=== PATIENT | female | born 1960 | race Caucasian/White ===

== ENCOUNTER 2018-01-20 11:31 | Outpatient (CLI) | payer OTHER, SELFPAY ==
--- NOTE | 2018-01-20 13:12 | RAD ---
PA AND LATERAL VIEWS CHEST: HISTORY: Wheezing. FINDINGS: The heart size is normal. The left lung is clear. There is a right-sided moderate-sized pleural eff usion. No pneumothoraces identified. IMPRESSION: Right pleural effusion. POS: [facility]
== END 2018-01-20 11:32 | disposition home or self-care (01) ==
LOC: RAD-FRANK 11:31
PROVIDERS: ATTEND Nurse Practitioner Family
DX: R06.02 Shortness of breath (principal); R68.89 Other general symptoms and signs; R60.0 Localized edema; R06.2 Wheezing; J45.41 Moderate persistent asthma with (acute) exacerbation; J90 Pleural effusion, not elsewhere classified
CPT/HCPCS: 36415; 71046; 80053; 83880; 85025

== ENCOUNTER 2019-03-16 16:05 | Emergency (ER) | payer OTHER ==
[~2019-03-16 16:05] MED LIST: ISOVUE-370 76%-LOCM 1 ML ONE
[2019-03-16 16:55] LABS: #Basophils 0.1 thou/uL (0.0-0.2); #Eosinphils 0.2 thou/uL (0.0-0.7); #Lymphocytes 1.5 thou/uL (1.20-3.40); #Monocytes 0.5 thou/uL (0.11-0.59); #Neutrophils 4.6 thou/uL (1.40-6.50); %Basophils 1.1 % (0.0-1.0); %Eosinophils 3.2 % (0.0-10.0); %Lymphocytes 21.4 % (21.0-51.0); %Monocytes 7.8 % (0.0-10.0); %Neutrophils 66.6 % (42.0-75.0); Hemoglobin 12.5 g/dL (12.0-16.0); Mean Corpuscular HGB CONC 33.8 g/dL (32.0-36.0); Mean Corpuscular Hemoglobin 33.7 pg (27.0-31.0); Mean Corpuscular Volume 99.8 fL (78.0-98.0); Mean Platelet Volume 7.1 fL (7.4-10.4); Platelet Count 128 thou/uL (130-400); RBC Distribution Width 13.8 % (11.5-14.5); Red Blood Cell (RBC) Count 3.71 mill/uL (4.20-5.40); White Blood Cell (WBC) Count 6.9 thou/uL (4.8-10.8)
[2019-03-16 17:16] LABS: ALT (SGPT) 29 U/L (8-55); AST (SGOT) 64 U/L (5-34); Alkaline Phosphatase 121 U/L (40-150); Anion Gap 10 mmol/L (10-20); BUN (Urea Nitrogen) 8 mg/dL (9.8-20.1); Bilirubin, Total 1.6 mg/dL (0.2-1.2); CK (CPK) 27 U/L (29-168); Calc. Creatinine Clearance 0 mL/min (70-130); Carbon Dioxide 30 mmol/L (22-29); Chloride 100 mmol/L (98-107); Estimated GFR-MDRD 89; Globulin 4.3 g/dL (2.4-3.5); Glucose 102 mg/dL (70-105); Lipase 45 U/L (8-78); Protein, Total 7.3 g/dL (6.0-8.3); Sodium 136 mmol/L (136-145)
--- NOTE | 2019-03-16 17:17 | CT ---
CTA Angio Chest W WO Con HISTORY: Patient being treated for right lower lobe pneumonia. Worsening dyspnea. COMPARISON: Plain film examination done earlier today. FINDINGS: A very large right-sided pleural effusion is again identified with marked volume loss landa es of the right lower lobe. There are no signs of a confluent infiltrate changes appear more related to the volume loss in the right lower and middle lobes related to compressive atelectasis rel ated to the large effusion. The left lung is essentially clear. The thoracic aorta is normal in caliber. There is no CT evidence for pulmonary embolus. Liver parenchyma shows a nodular cirrhotic contour splenomegaly and varices are identified. Some mild ascites is noted. Hypodensity within the left lobe of the liver statistically most likely a cyst. IMPRESSION: 1. No CT evidence for pulmonary embolus. 2. Large right pleural effusion with atelectatic changes in the right lung base. 3. Cirrhotic appearing liver with mild ascites and splenomegaly.
--- NOTE | 2019-03-16 18:19 | RAD ---
EXAM: Chest one view: HISTORY: Postthoracentesis COMPARISON: 03/16/2019 FINDINGS: The previously noted large right pleural effusion has considerably decreased in size. There is some u nderlying right lung atelectasis. No evidence for pneumothorax. Heart size: Within normal limits. The lungs: Underlying parenchymal changes in the right lower lobe. IMPRESSION: Decrease in the right-sided pleural effusion with some underlying right lower lobe atelectasis. No pn eumothorax.
[2019-03-16 18:36] LABS: BF Color Yellow; Body Fluid Source Thoracentesis Fluid; Clarity Hazy (Clear); RBC Count-Automated 14000 /cumm; Tube # EDTA; WBC Background Count 0.01; WBC/NonHematic-Auto 244 /cumm
[2019-03-16 18:40] LABS: Fluid, Triglycerides 22 mg/dL (Not Available); Pleural Fluid, Amylase Less than 30 U/L (Not Available); Pleural Fluid, Glucose 130 mg/dL; Pleural Fluid, LDH 148 U/L (Not Available)
[2019-03-16 19:21] LABS: BF Segmented Neutrophils 10 %; Cell Count Non Hematic 59 %; Lymphocytes 31 %
--- NOTE | 2019-03-17 00:42 | OP ---
DATE OF PROCEDURE: 03/16/2019 PROCEDURE: Right thoracentesis. PREOPERATIVE DIAGNOSIS: Massive right pleural effusion. POSTOPERATIVE DIAGNOSIS: Massive right pleural effusion. ANESTHESIA: 1% lidocaine without epinephrine. DESCRIPTION OF PROCEDURE: Procedure was done in the emergency room with the patient in the sitting position. She gave informed consent prior to the procedure and understood the risks including bleeding, infection, external lung puncture, and agreed to proceed. The patient was placed in the sitting position. The right posterior hemothorax was labeled at the 5th and 6th interspace midscapular line. She was cleansed with chlorhexidine and draped sterilely. 1% lidocaine was used to anesthetize the entry site. A [id number]-[id number]-Mgaokqhu catheter was placed sterilely into the pleural space. A 1500 mL of melanie/red pleural fluid was removed and sent for appropriate studies. She tolerated the procedure well with minimal coughing. Postoperative x-ray is pending. Job ID: [id number]
--- NOTE | 2019-03-17 00:44 | CON ---
DATE OF CONSULTATION: 03/16/2019 REASON FOR CONSULTATION: Pleural effusion. HISTORY OF PRESENT ILLNESS: Ms. Du is a 58-year-old female who presented to the emergency room with increasing shortness of breath that occurred since March 02. She says she was diagnosed with pneumonia on March 02 and prescribed antibiotics and steroids. Last night, she says she became more short of breath. She said she had some subjective fever by a temporal thermal probe. PAST MEDICAL HISTORY: Hypertension and peripheral edema. PAST SURGICAL HISTORY: None reported. ALLERGIES: NONE. MEDICATIONS: Prior to admission, not taking any. SOCIAL HISTORY: Nonsmoker, does not consume alcohol except for one drink per night. 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 FAMILY MEDICAL HISTORY: Unremarkable. REVIEW OF SYSTEMS: A 12-point review of systems is otherwise negative. PHYSICAL EXAMINATION: VITAL SIGNS: Pulse 100, blood pressure 140/70, O2 saturation 97% on room air. HEENT: Unremarkable. NECK: Without adenopathy, JVD, or bruits. LUNGS: She has diminished breath sounds at the right base. No dullness to percussion, right base. Left side is clear. CARDIAC: S1 and S2. Regular. ABDOMEN: Soft, nontender, and nondistended. EXTREMITIES: No clubbing, cyanosis, or edema. LABORATORY DATA: Sodium 136, potassium 4, chloride 100, CO2 of 30, BUN 8, creatinine 0.7 glucose 102, albumin is 3.0, AST 64, ALT 29. White count 6.9, hematocrit 37, platelet count 128. Chest x-ray showed a massive right pleural effusion, which was confirmed by CT scan. However, reviewing previous x-rays dating back to March 02, 2019 and January 20, 2018, she also had a pleural effusion on the right at that time. It has been more so prominent the last month than it was last year. ASSESSMENT: Right pleural effusion - source not clear. PLAN: Diagnostic and therapeutic right thoracentesis. Further disposition to follow. Job ID: [id number]
== END 2019-03-16 18:37 | disposition home or self-care (01) ==
LOC: ERS 16:05
DX: J95.89 Other postprocedural complications and disorders of respiratory system, not elsewhere classified (principal); R06.00 Dyspnea, unspecified; I10 Essential (primary) hypertension; Z79.899 Other long term (current) drug therapy
CPT/HCPCS: 71045; 71275; 80053; 82150; 82550; 82945; 83615; 83690; 83880; 83986; 84157; 84478; 84484; 85025; 85060; 87070; 87116; 87205; 87206; 88112; 88305; 89051; 93005; 96360; Q9966

== ENCOUNTER 2019-06-03 14:22 | Outpatient (CLI) | payer OTHER ==
--- NOTE | 2019-06-03 15:23 | RAD ---
3 VIEWS RIGHT HAND: Date: 06/03/19 HISTORY: Pain in right fifth digit. FINDINGS: There is a comminuted fracture with minimal separation of fracture fragments involving the proximal p halanx of the right small finger. There is no significant angulation or displacement of fracture frag ments. There is also an avulsion fracture seen involving the dorsal aspect of the base of the middle phalanx right small finger. 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 There is slight irr egularity to the base of the fifth metacarpal small finger, but this is likely related to overlying s tructures and is not thought to be related to fracture. IMPRESSION: 1. Comminuted and minimally , but nondisplaced fracture involving the proximal phalanx righ t small finger. 2. Avulsion fracture involving the dorsal aspect base of the middle phalanx right small finger. POS: [facility]
== END 2019-06-03 14:23 | disposition home or self-care (01) ==
LOC: RAD-FRANK 14:22
PROVIDERS: ATTEND Nurse Practitioner Family
DX: M79.641 Pain in right hand (principal); M25.532 Pain in left wrist; S62.646A Nondisplaced fracture of proximal phalanx of right little finger, initial encounter for closed fracture; S62.626A Displaced fracture of middle phalanx of right little finger, initial encounter for closed fracture; W19.XXXA Unspecified fall, initial encounter

== ENCOUNTER 2025-01-04 14:50 | Inpatient (IN) | payer OTHER, SELFPAY ==
[~2025-01-04 14:50] MED LIST changes: -ISOVUE-370 76%-LOCM 1 ML ONE; +Iopamidol-370 76% 500 ML MDV (1 ML CHARGE) ONE
[2025-01-04 18:34] LABS: ALT (SGPT) 40 U/L (Less than 34); AST (SGOT) 125 U/L (11-34); Alkaline Phosphatase 129 U/L (40-110); Anion Gap 13 mmol/L (10-20); BUN (Urea Nitrogen) 42 mg/dL (9.8-20.1); Bilirubin, Total 8.5 mg/dL (0.3-1.2); CK (CPK) 39 U/L (29-168); Calc. Creatinine Clearance 0 mL/min (70-130); Calcium 8.6 mg/dL (7.8-10.44); Carbon Dioxide 26 mmol/L (23-31); Chloride 94 mmol/L (98-107); Estimated GFR 31; Globulin 4.1 g/dL (2.4-3.5); Glucose 110 mg/dL (80-115); INR-International Normal Ratio 1.8; PTT 40.3 sec (22.9-36.1); Potassium 3.8 mmol/L (3.5-5.1); Protein, Total 6.1 g/dL (5.8-8.1); Prothrombin Time 20.8 sec (12.0-14.7); Sodium 129 mmol/L (136-145)
[2025-01-04 18:38] LABS: Troponin I 0.027 ng/mL (< 0.028)
[2025-01-04 18:41] LABS: Anisocytosis MODERATE=16-30 cells HPF (0-5); Burr Cells SLIGHT = 2-5 cells HPF (0-1); Macrocytosis MODERATE=16-30 cells HPF (0-5); Platelet Adequacy Comment Platelets Decreased; Poikilocytosis SLIGHT = 6-15 cells HPF (0-5); Polychromasia MODERATE = 3-4 cells HPF (0-2)
[2025-01-04 18:42] LABS: %Basophils 0.9 % (0.0-1.0); %Eosinophils 6.2 % (0.0-10.0); %Lymphocytes 14.8 % (21.0-51.0); %Monocytes 11.2 % (0.0-10.0); %Neutrophils 66.5 % (42.0-75.0); Hematocrit 21.6 % (36.0-47.0); Mean Corpuscular Hemoglobin 42.3 pg (27.0-31.0); Mean Corpuscular Volume 114.3 fL (78.0-98.0); Mean Platelet Volume 9.6 fL (7.4-10.4); Platelet Count 125 10x3/uL (130-400); RBC Distribution Width 20.5 % (11.5-14.5); Red Blood Cell (RBC) Count 1.89 mill/uL (4.20-5.40)
[2025-01-04 20:57] LABS: Bilirubin Negative (Negative); Blood, Urine Negative (Negative); CAUTI Indications for Culture Alt mental st,lethar; Glucose, Urine (Dipstick) Normal (Negative); Ketone, Urine Negative (Negative); Leukocyte 500 Leu/uL (Negative); Nitrite Negative (Negative); Protein, Urine (Dipstick) Negative (Neg-Trace); RBC/HPF 21-50 HPF (0-3); Specific Gravity, Urine 1.029 (1.002-1.036); Squamous Epithelial 0-3 HPF (0-3); Urobilinogen 3 mg/dL (Less than 2); Yeast-Budding 1+ HPF (None Seen); pH, Urine 5.5 (5.0-9.0)
[2025-01-04] MEDS ORDERED: Ondansetron ODT 4 MG TAB PO PRN (20:57)
[2025-01-04] MEDS ORDERED: Ondansetron PF 4 MG/2 ML Vial IVP PRN (20:57)
[2025-01-04] MEDS ORDERED: Acetaminophen 650 MG Suppository PR PRN (20:57)
[2025-01-04 20:59] LABS: Bacteria/HPF 1+ HPF (None Seen); Clarity Hazy (Clear)
[2025-01-04 21:00] LABS: Urine Culture Reflex Yes Yes
[2025-01-04] MEDS ORDERED: Ondansetron PF 4 MG/2 ML Vial ONE (21:45)
[2025-01-05] MEDS: Albumin 25% 25 GM (100 mL) BOT IVPB SCH ×2 (00:07→01:39)
[2025-01-05 00:08] VITALS: BMI 38.0
[2025-01-05] MEDS: Rifaximin 550 MG TAB PO SCH (01:39)
[2025-01-05] MEDS: cefTRIAXone\\ROCEPHIN 1 GM in Sodium Chloride 0.9% 100 ML IVPB SCH (02:32)
[2025-01-05 04:35] LABS: #Basophils 0.03 10x3/uL (0.0-0.2); %Basophils 0.4 % (0.0-1.0); %Eosinophils 10.1 % (0.0-10.0); %Lymphocytes 17.4 % (21.0-51.0); %Neutrophils 61.8 % (42.0-75.0); Hematocrit 18.8 % (36.0-47.0); Hemoglobin 6.8 g/dL (12.0-16.0); Mean Corpuscular HGB CONC 36.2 g/dL (32.0-36.0); Mean Corpuscular Hemoglobin 41.2 pg (27.0-31.0); Mean Corpuscular Volume 113.9 fL (78.0-98.0); Platelet Count 87 10x3/uL (130-400); RBC Distribution Width 20.4 % (11.5-14.5); Red Blood Cell (RBC) Count 1.65 mill/uL (4.20-5.40)
[2025-01-05 04:49] LABS: ALT (SGPT) 29 U/L (Less than 34); AST (SGOT) 98 U/L (11-34); Albumin 2.2 g/dL (3.1-4.5); Alkaline Phosphatase 99 U/L (40-110); Anion Gap 14 mmol/L (10-20); BUN (Urea Nitrogen) 37 mg/dL (9.8-20.1); Bilirubin, Total 8.7 mg/dL (0.3-1.2); Calc. Creatinine Clearance 51 mL/min (70-130); Calcium 8.4 mg/dL (7.8-10.44); Carbon Dioxide 24 mmol/L (23-31); Chloride 96 mmol/L (98-107); Estimated GFR 33; Globulin 3.5 g/dL (2.4-3.5); Glucose 101 mg/dL (80-115); Potassium 3.8 mmol/L (3.5-5.1); Protein, Total 5.7 g/dL (5.8-8.1); Sodium 130 mmol/L (136-145)
[2025-01-05] MEDS ORDERED: Cyanocobalamin 1000 MCG/ML VIAL IM SCH (09:00)
[2025-01-05] MEDS ORDERED: Folic Acid 5 MG/ML MDV SC SCH (09:00)
[2025-01-05] MEDS: Furosemide 40 MG TAB PO SCH (10:17)
[2025-01-05] MEDS: Spironolactone 100 MG TAB PO SCH (10:17)
[2025-01-05] MEDS: Pantoprazole 40 MG VIAL IVP SCH (10:17)
[2025-01-05] MEDS: Nadolol 40 MG TAB PO SCH (10:18)
[2025-01-05] MEDS: Folic Acid 0.4 MG in Syringe 0 ML SC SCH (10:18)
[2025-01-05 16:25] LABS: Hematocrit 23.1 % (36.0-47.0); Hemoglobin 7.9 g/dL (12.0-16.0)
[2025-01-05] MEDS: Octreotide Acetate 50 MCG/ML AMP SLOW IVP SCH (19:02)
[2025-01-05] MEDS: Octreotide Acetate 1,250 MCG in Sodium Chloride 0.9% 250 ML 250 ML IVPB SCH (19:02)
[2025-01-05] MEDS: Phytonadione 5 MG TAB PO SCH (19:02)
[2025-01-05] MEDS: Midodrine HCl 5 MG TAB PO SCH (21:54)
[2025-01-06 03:42] LABS: ALT (SGPT) 27 U/L (Less than 34); AST (SGOT) 81 U/L (11-34); Albumin 2.9 g/dL (3.1-4.5); Alkaline Phosphatase 85 U/L (40-110); Anion Gap 16 mmol/L (10-20); BUN (Urea Nitrogen) 39 mg/dL (9.8-20.1); Bilirubin, Total 8.8 mg/dL (0.3-1.2); Calc. Creatinine Clearance 55 mL/min (70-130); Calcium 8.8 mg/dL (7.8-10.44); Carbon Dioxide 25 mmol/L (23-31); Chloride 93 mmol/L (98-107); Estimated GFR 35; Globulin 3.1 g/dL (2.4-3.5); Glucose 184 mg/dL (80-115); Potassium 3.3 mmol/L (3.5-5.1); Sodium 131 mmol/L (136-145)
[2025-01-06 03:52] LABS: #Basophils 0.05 10x3/uL (0.0-0.2); %Eosinophils 9.5 % (0.0-10.0); %Lymphocytes 18.9 % (21.0-51.0); %Monocytes 10.9 % (0.0-10.0); %Neutrophils 59.5 % (42.0-75.0); Hematocrit 25.2 % (36.0-47.0); Hemoglobin 8.2 g/dL (12.0-16.0); Mean Corpuscular HGB CONC 32.5 g/dL (32.0-36.0); Mean Corpuscular Hemoglobin 35.3 pg (27.0-31.0); Mean Corpuscular Volume 108.6 fL (78.0-98.0); Mean Platelet Volume 9.7 fL (7.4-10.4); Platelet Count 69 10x3/uL (130-400); RBC Distribution Width 24.2 % (11.5-14.5); Red Blood Cell (RBC) Count 2.32 mill/uL (4.20-5.40)
[2025-01-06] MEDS ORDERED: PROPOFOL 20 ML ONE (07:13)
[2025-01-06] MEDS ORDERED: Lidocaine 2% PF 5 ML VIAL ONE ×2 (07:13→09:19)
[2025-01-06] MEDS ORDERED: Ondansetron PF 4 MG/2 ML Vial ONE (09:09)
[2025-01-06] MEDS ORDERED: PHENYLEPHRINE-NS 100 MCG/ML 10 ML SYRINGE ONE (09:26)
[2025-01-06] MEDS: Acetaminophen 325 MG TAB PO PRN (11:39)
[2025-01-06] MEDS: Lactulose 20 GM (30 mL) UDCUP PO SCH (14:18)
[2025-01-06 19:12] LABS: RBC Count-Automated (BF) 0 /cu.mm; WBC/Nucleated-Auto (BF) 71 /cu.mm
[2025-01-06 19:20] LABS: BF Color Yellow; Body Fluid Source Ascites Body Fluid; Clarity Clear (Clear); Tube # EDTA
[2025-01-06] MEDS: cefTRIAXone\\ROCEPHIN 2 GM in Sodium Chloride 0.9% 100 ML IVPB SCH (21:38)
[2025-01-06 22:00] LABS: BF Segmented Neutrophils 1 %; Cell Count Non Hematic 82 %; Eosinophils 0 %; Lymphocytes 17 %
[2025-01-07 06:41] LABS: #Basophils Less than 0.03 10x3/uL (0.0-0.2); %Basophils 0.7 % (0.0-1.0); %Lymphocytes 25.8 % (21.0-51.0); %Monocytes 16.6 % (0.0-10.0); %Neutrophils 49.6 % (42.0-75.0); Hematocrit 22.6 % (36.0-47.0); Mean Corpuscular HGB CONC 35.4 g/dL (32.0-36.0); Mean Corpuscular Volume 110.2 fL (78.0-98.0); Mean Platelet Volume 10.3 fL (7.4-10.4); Platelet Count 60 10x3/uL (130-400); RBC Distribution Width 23.4 % (11.5-14.5); Red Blood Cell (RBC) Count 2.05 mill/uL (4.20-5.40)
[2025-01-07 06:56] LABS: ALT (SGPT) 27 U/L (Less than 34); AST (SGOT) 90 U/L (11-34); Albumin 2.3 g/dL (3.1-4.5); Alkaline Phosphatase 91 U/L (40-110); Anion Gap 14 mmol/L (10-20); BUN (Urea Nitrogen) 35 mg/dL (9.8-20.1); Bilirubin, Total 5.9 mg/dL (0.3-1.2); Calc. Creatinine Clearance 50 mL/min (70-130); Calcium 8.4 mg/dL (7.8-10.44); Carbon Dioxide 26 mmol/L (23-31); Chloride 98 mmol/L (98-107); Estimated GFR 32; Glucose 115 mg/dL (80-115); Potassium 3.1 mmol/L (3.5-5.1); Protein, Total 5.3 g/dL (5.8-8.1); Sodium 135 mmol/L (136-145)
[2025-01-07 07:30] LABS: Anisocytosis MODERATE=16-30 cells HPF (0-5); Hypochromia SLIGHT = 6-15 cells HPF (0-5); Macrocytosis MODERATE=16-30 cells HPF (0-5); Platelet Adequacy Comment Platelets Decreased; Polychromasia SLIGHT = 2-3 cells HPF (0-2)
[2025-01-07] MEDS: Lactulose 20 GM (30 mL) UDCUP PO SCH (08:45)
[2025-01-07] MEDS: Sodium Chloride 0.9% 1,000 ML IV SCH (09:15)
[2025-01-07] MEDS: Pantoprazole 40 MG DR.TAB PO SCH (10:31)
[2025-01-07] MEDS: Potassium Chloride 20 MEQ TAB PO SCH (10:31)
[2025-01-07] MEDS: Magnesium Oxide 400 MG TAB PO SCH (10:31)
[2025-01-07] MEDS: Albumin 25% 25 GM (100 mL) BOT IVPB SCH (11:46)
[2025-01-08 05:15] LABS: #Basophils Less than 0.03 10x3/uL (0.0-0.2); %Basophils 0.8 % (0.0-1.0); %Lymphocytes 28.7 % (21.0-51.0); %Neutrophils 45.1 % (42.0-75.0); Hematocrit 22.2 % (36.0-47.0); Hemoglobin 7.5 g/dL (12.0-16.0); Mean Corpuscular HGB CONC 33.8 g/dL (32.0-36.0); Mean Corpuscular Hemoglobin 37.7 pg (27.0-31.0); Mean Corpuscular Volume 111.6 fL (78.0-98.0); Mean Platelet Volume 10.3 fL (7.4-10.4); Platelet Count 48 10x3/uL (130-400); RBC Distribution Width 22.8 % (11.5-14.5); Red Blood Cell (RBC) Count 1.99 mill/uL (4.20-5.40)
[2025-01-08 05:55] LABS: ALT (SGPT) 21 U/L (Less than 34); AST (SGOT) 76 U/L (11-34); Alkaline Phosphatase 73 U/L (40-110); Anion Gap 13 mmol/L (10-20); BUN (Urea Nitrogen) 30 mg/dL (9.8-20.1); Bilirubin, Total 4.7 mg/dL (0.3-1.2); Calc. Creatinine Clearance 59 mL/min (70-130); Calcium 8.4 mg/dL (7.8-10.44); Carbon Dioxide 24 mmol/L (23-31); Chloride 107 mmol/L (98-107); Estimated GFR 39; Globulin 2.7 g/dL (2.4-3.5); Glucose 120 mg/dL (80-115); Potassium 4.3 mmol/L (3.5-5.1); Protein, Total 5.7 g/dL (5.8-8.1); Sodium 140 mmol/L (136-145)
[2025-01-09 05:15] LABS: #Basophils 0.03 10x3/uL (0.0-0.2); %Basophils 0.8 % (0.0-1.0); %Eosinophils 6.2 % (0.0-10.0); %Monocytes 13.7 % (0.0-10.0); Hematocrit 25.3 % (36.0-47.0); Hemoglobin 8.6 g/dL (12.0-16.0); Mean Corpuscular Hemoglobin 38.6 pg (27.0-31.0); Mean Corpuscular Volume 113.5 fL (78.0-98.0); Mean Platelet Volume 9.7 fL (7.4-10.4); Platelet Count 54 10x3/uL (130-400); RBC Distribution Width 22.1 % (11.5-14.5); Red Blood Cell (RBC) Count 2.23 mill/uL (4.20-5.40)
[2025-01-09 05:48] LABS: ALT (SGPT) 22 U/L (Less than 34); AST (SGOT) 74 U/L (11-34); Albumin 2.9 g/dL (3.1-4.5); Alkaline Phosphatase 68 U/L (40-110); Anion Gap 15 mmol/L (10-20); BUN (Urea Nitrogen) 22 mg/dL (9.8-20.1); Bilirubin, Total 5.7 mg/dL (0.3-1.2); Calc. Creatinine Clearance 75 mL/min (70-130); Calcium 8.6 mg/dL (7.8-10.44); Carbon Dioxide 21 mmol/L (23-31); Chloride 108 mmol/L (98-107); Estimated GFR 52; Globulin 2.9 g/dL (2.4-3.5); Glucose 101 mg/dL (80-115); Potassium 4.2 mmol/L (3.5-5.1); Protein, Total 5.8 g/dL (5.8-8.1); Sodium 140 mmol/L (136-145)
[2025-01-09 05:53] LABS: Anisocytosis SLIGHT = 6-15 cells HPF (0-5); Hypochromia SLIGHT = 6-15 cells HPF (0-5); Macrocytosis SLIGHT = 6-15 cells HPF (0-5); Platelet Adequacy Comment Platelets Decreased; Polychromasia SLIGHT = 2-3 cells HPF (0-2)
[2025-01-10 05:51] LABS: ALT (SGPT) 28 U/L (Less than 34); AST (SGOT) 104 U/L (11-34); Alkaline Phosphatase 63 U/L (40-110); Anion Gap 13 mmol/L (10-20); BUN (Urea Nitrogen) 20 mg/dL (9.8-20.1); Bilirubin, Total 6.7 mg/dL (0.3-1.2); Calc. Creatinine Clearance 85 mL/min (70-130); Calcium 8.6 mg/dL (7.8-10.44); Carbon Dioxide 24 mmol/L (23-31); Chloride 103 mmol/L (98-107); Estimated GFR 60; Globulin 3.1 g/dL (2.4-3.5); Glucose 128 mg/dL (80-115); Potassium 3.9 mmol/L (3.5-5.1); Protein, Total 6.1 g/dL (5.8-8.1); Sodium 136 mmol/L (136-145)
[2025-01-10 05:57] LABS: Hematocrit 25.6 % (36.0-47.0); Hemoglobin 9.1 g/dL (12.0-16.0); Mean Corpuscular HGB CONC 35.5 g/dL (32.0-36.0); Mean Corpuscular Hemoglobin 39.9 pg (27.0-31.0); Mean Corpuscular Volume 112.3 fL (78.0-98.0); Mean Platelet Volume 10.5 fL (7.4-10.4); Platelet Count 61 10x3/uL (130-400); RBC Distribution Width 21.3 % (11.5-14.5); Red Blood Cell (RBC) Count 2.28 mill/uL (4.20-5.40)
[2025-01-10 06:50] LABS: Anisocytosis MODERATE=16-30 cells HPF (0-5); Band 1 % (5-11); Eosinophils 2 % (0-10); Large Platelets 0.9 % (0-5); Lymphocytes 8 % (21-51); Macrocytosis SLIGHT = 6-15 cells HPF (0-5); Monocytes 5 % (0-10); Neutrophil 82 % (42-75); Platelet Adequacy Comment Platelets Decreased; Polychromasia SLIGHT = 2-3 cells HPF (0-2); Smudge Cells 36.8 %
[2025-01-11 06:18] LABS: Hematocrit 23.8 % (36.0-47.0); Mean Corpuscular HGB CONC 33.6 g/dL (32.0-36.0); Mean Corpuscular Hemoglobin 37.2 pg (27.0-31.0); Mean Corpuscular Volume 110.7 fL (78.0-98.0); Mean Platelet Volume 11.4 fL (7.4-10.4); Platelet Count 40 10x3/uL (130-400); RBC Distribution Width 20.7 % (11.5-14.5); Red Blood Cell (RBC) Count 2.15 mill/uL (4.20-5.40)
[2025-01-11 06:39] LABS: ALT (SGPT) 28 U/L (Less than 34); AST (SGOT) 118 U/L (11-34); Albumin 2.7 g/dL (3.1-4.5); Alkaline Phosphatase 56 U/L (40-110); Anion Gap 13 mmol/L (10-20); BUN (Urea Nitrogen) 21 mg/dL (9.8-20.1); Bilirubin, Total 5.4 mg/dL (0.3-1.2); Calc. Creatinine Clearance 75 mL/min (70-130); Calcium 8.6 mg/dL (7.8-10.44); Carbon Dioxide 24 mmol/L (23-31); Chloride 105 mmol/L (98-107); Estimated GFR 52; Glucose 125 mg/dL (80-115); Potassium 4.3 mmol/L (3.5-5.1); Protein, Total 5.7 g/dL (5.8-8.1); Sodium 138 mmol/L (136-145)
[2025-01-11 07:01] LABS: Anisocytosis SLIGHT = 6-15 cells HPF (0-5); Band 4 % (5-11); Large Platelets 4.9 % (0-5); Lymphocytes 18 % (21-51); Macrocytosis SLIGHT = 6-15 cells HPF (0-5); Monocytes 15 % (0-10); Neutrophil 64 % (42-75); Platelet Adequacy Comment Platelets Decreased; Polychromasia SLIGHT = 2-3 cells HPF (0-2); Smudge Cells 64.7 %
[2025-01-11 19:57] VITALS: BMI 37.7
[2025-01-12 05:20] LABS: #Basophils Less than 0.03 10x3/uL (0.0-0.2); %Basophils 0.5 % (0.0-1.0); %Lymphocytes 39.2 % (21.0-51.0); %Monocytes 15.6 % (0.0-10.0); %Neutrophils 39.7 % (42.0-75.0); Hematocrit 24.5 % (36.0-47.0); Mean Corpuscular HGB CONC 32.7 g/dL (32.0-36.0); Mean Corpuscular Hemoglobin 35.9 pg (27.0-31.0); Mean Corpuscular Volume 109.9 fL (78.0-98.0); Mean Platelet Volume 10.6 fL (7.4-10.4); Platelet Count 42 10x3/uL (130-400); RBC Distribution Width 20.2 % (11.5-14.5); Red Blood Cell (RBC) Count 2.23 mill/uL (4.20-5.40)
[2025-01-12 05:23] LABS: ALT (SGPT) 27 U/L (Less than 34); AST (SGOT) 114 U/L (11-34); Albumin 2.5 g/dL (3.1-4.5); Alkaline Phosphatase 60 U/L (40-110); Anion Gap 12 mmol/L (10-20); BUN (Urea Nitrogen) 19 mg/dL (9.8-20.1); Bilirubin, Total 4.5 mg/dL (0.3-1.2); Calc. Creatinine Clearance 72 mL/min (70-130); Calcium 8.5 mg/dL (7.8-10.44); Carbon Dioxide 24 mmol/L (23-31); Chloride 106 mmol/L (98-107); Estimated GFR 50; Globulin 2.9 g/dL (2.4-3.5); Glucose 87 mg/dL (80-115); Protein, Total 5.4 g/dL (5.8-8.1); Sodium 138 mmol/L (136-145)
[2025-01-12] MEDS: Lorazepam 0.5 MG TAB PO SCH (23:44)
[2025-01-13 05:07] LABS: #Basophils Less than 0.03 10x3/uL (0.0-0.2); %Basophils 0.3 % (0.0-1.0); %Eosinophils 3.6 % (0.0-10.0); %Lymphocytes 31.5 % (21.0-51.0); %Monocytes 15.3 % (0.0-10.0); Hematocrit 25.8 % (36.0-47.0); Hemoglobin 8.8 g/dL (12.0-16.0); Mean Corpuscular HGB CONC 34.1 g/dL (32.0-36.0); Mean Corpuscular Hemoglobin 37.3 pg (27.0-31.0); Mean Corpuscular Volume 109.3 fL (78.0-98.0); Mean Platelet Volume 11.5 fL (7.4-10.4); Platelet Count 51 10x3/uL (130-400); Red Blood Cell (RBC) Count 2.36 mill/uL (4.20-5.40)
[2025-01-13 05:42] LABS: ALT (SGPT) 28 U/L (Less than 34); AST (SGOT) 107 U/L (11-34); Albumin 2.6 g/dL (3.1-4.5); Alkaline Phosphatase 67 U/L (40-110); Anion Gap 13 mmol/L (10-20); BUN (Urea Nitrogen) 19 mg/dL (9.8-20.1); Bilirubin, Total 4.7 mg/dL (0.3-1.2); Calc. Creatinine Clearance 73 mL/min (70-130); Calcium 8.5 mg/dL (7.8-10.44); Carbon Dioxide 25 mmol/L (23-31); Chloride 105 mmol/L (98-107); Estimated GFR 50; Globulin 3.3 g/dL (2.4-3.5); Glucose 101 mg/dL (80-115); Potassium 3.9 mmol/L (3.5-5.1); Protein, Total 5.9 g/dL (5.8-8.1); Sodium 139 mmol/L (136-145)
[2025-01-14 01:27] LABS: ALT (SGPT) 27 U/L (Less than 34); AST (SGOT) 96 U/L (11-34); Albumin 2.6 g/dL (3.1-4.5); Alkaline Phosphatase 69 U/L (40-110); Anion Gap 13 mmol/L (10-20); BUN (Urea Nitrogen) 15 mg/dL (9.8-20.1); Bilirubin, Total 5.6 mg/dL (0.3-1.2); Calc. Creatinine Clearance 82 mL/min (70-130); Calcium 8.6 mg/dL (7.8-10.44); Carbon Dioxide 23 mmol/L (23-31); Chloride 106 mmol/L (98-107); Estimated GFR 58; Globulin 3.3 g/dL (2.4-3.5); Glucose 93 mg/dL (80-115); Potassium 3.8 mmol/L (3.5-5.1); Protein, Total 5.9 g/dL (5.8-8.1); Sodium 138 mmol/L (136-145)
[2025-01-14 01:33] LABS: #Basophils Less than 0.03 10x3/uL (0.0-0.2); %Basophils 0.3 % (0.0-1.0); %Eosinophils 5.1 % (0.0-10.0); %Lymphocytes 33.1 % (21.0-51.0); %Monocytes 12.8 % (0.0-10.0); %Neutrophils 48.4 % (42.0-75.0); Hematocrit 25.5 % (36.0-47.0); Hemoglobin 8.8 g/dL (12.0-16.0); Mean Corpuscular HGB CONC 34.5 g/dL (32.0-36.0); Mean Corpuscular Hemoglobin 38.8 pg (27.0-31.0); Mean Corpuscular Volume 112.3 fL (78.0-98.0); Mean Platelet Volume 10.4 fL (7.4-10.4); Platelet Count 58 10x3/uL (130-400); RBC Distribution Width 20.2 % (11.5-14.5); Red Blood Cell (RBC) Count 2.27 mill/uL (4.20-5.40)
[2025-01-14 09:12] VITALS: BP 115/72; TEMP 98.3
== END 2025-01-14 10:23 | disposition home or self-care (01) | DRG 441 ==
LOC: ERS 14:50 → 2NO 21:29 → UNDODISIN 01-08 16:28 → MSONC 01-12 17:28
PROVIDERS: ADMIT Student in an Organized Health Care Education/Training Program; ATTEND Hospitalist
PROC: 30233N1 Transfusion of Nonautologous Red Blood Cells into Peripheral Vein, Percutaneous Approach (ICD-10-PCS; principal; 2025-01-05)
PROC: 30233J1 Transfusion of Nonautologous Serum Albumin into Peripheral Vein, Percutaneous Approach (ICD-10-PCS; 2025-01-05)
PROC: 0W9G3ZZ Drainage of Peritoneal Cavity, Percutaneous Approach (ICD-10-PCS; 2025-01-06)
PROC: 0DB78ZX Excision of Stomach, Pylorus, Via Natural or Artificial Opening Endoscopic, Diagnostic (ICD-10-PCS; 2025-01-06)
DX: K76.82 Hepatic encephalopathy (principal); I85.01 Esophageal varices with bleeding; N17.9 Acute kidney failure, unspecified; N39.0 Urinary tract infection, site not specified; E87.1 Hypo-osmolality and hyponatremia; K76.6 Portal hypertension; D62 Acute posthemorrhagic anemia; R18.8 Other ascites; K74.60 Unspecified cirrhosis of liver; I10 Essential (primary) hypertension; F10.90 Alcohol use, unspecified, uncomplicated; F03.90 Unspecified dementia, unspecified severity, without behavioral disturbance, psychotic disturbance, mood disturbance, and anxiety; K21.9 Gastro-esophageal reflux disease without esophagitis; D69.6 Thrombocytopenia, unspecified; K31.89 Other diseases of stomach and duodenum; E87.6 Hypokalemia; Z79.899 Other long term (current) drug therapy
CPT/HCPCS: 36415; 36416; 36430; 49083; 70450; 71045; 74177; 80053; 80307; 81001; 82042; 82105; 82140; 82550; 83036; 83605; 83880; 84157; 84484; 85025; 85060; 85610; 85730; 86850; 86900; 86901; 87070; 87086; 87205; 88305; 89051; 93005; J0696; J2354; J2405; J2470; J2704; J7030; J7050; P9016; P9047; Q9967